=== PATIENT | male | born 1990 | race Caucasian/White ===

== ENCOUNTER → 2019-07-12 | Outpatient (CLI) | payer OTHER ==
--- NOTE | 2019-07-12 13:05 | XCELERA REPORT ---
[address] [address] Transthoracic Echocardiogram Report Name: CALVIN GOODSON Age: 29 yrs Gender: Male : 1990 Patient Status: Outpatient Patient Location: Study Date: 07/12/2019 08:11 AM Height: 67 in Weight: 185 lb BSA: 2.0 m2 Procedure: A complete two-dimensional transthoracic echocardiogram was performed (2D, M-mode, spectral and color flow Doppler). The study was technically adequate with some images being suboptimal in quality. Reason For Study: FAMILY HX OF ISCHEMIC HEART DISEASE Ordering Physician: MARYURI CATALAN Performed By: Sarah Delgado Interpretation Summary The left ventricular ejection fraction is normal. There is borderline concentric left ventricular hypertrophy. [place] not well visulised. Suspect apical hypertrophy. The left ventricle is grossly normal size. LV diastolic function could not be adequately assessed. Wall motion cannot be accurately commented on, but no definite regional wall motion abnormalities noted. There is probable mild right ventricular hypertrophy. The right ventricular systolic function is normal. The right ventricle is grossly normal size. The right atrium is normal in size The left atrial size is normal. There is no mitral valve stenosis. There is a trace amount of mitral regurgitation There is no aortic valve stenosis No aortic regurgitation is present. There is a trace or physiologic amount of tricuspid regurgitation Tricuspid regurgitation jet envelope not well defined to measure RV systolic pressure accurately. There is no tricuspid stenosis. The aortic root is not well visualized but is probably normal size. The inferior vena cava appeared normal and decreased > 50% with respiration (RAP 5-10 mmHg) There is no pericardial effusion. Consider cardiology evaluation. Consider cardiac MRI if clinically indicated. MMode/2D Measurements & Calculations RVDd: 2.2 cm LVIDd: 4.9 cm FS: 39.7 % Ao root diam: 3.0 cm IVSd: 0.99 cm LVIDs: 3.0 cm EDV(Teich): 113.5 ml Ao root area: 7.3 cm2 LVPWd: 0.97 cm ESV(Teich): 33.9 ml EF(Teich): 70.1 % Doppler Measurements & Calculations MV E max memo: MV dec slope: Ao V2 max: LV V1 max P.0 cm/sec 477.1 cm/sec2 95.1 cm/sec 3.2 mmHg MV A max memo: MV dec time: 0.19 secAo max P.6 mmHgLV V1 max: 59.3 cm/sec 89.4 cm/sec MV E/A: 1.5 PA V2 max: PI end-d memo: TR max memo: 80.3 cm/sec 49.9 cm/sec 170.9 cm/sec PA max P.6 mmHg TR max P.8 mmHg Left Ventricle The left ventricle is grossly normal size. There is borderline concentric left ventricular hypertrophy. The left ventricular ejection fraction is normal. LV diastolic function could not be adequately assessed. Wall motion cannot be accurately commented on, but no definite regional wall motion abnormalities noted. Right Ventricle The right ventricle is grossly normal size. There is mild right ventricular hypertrophy. The right ventricular systolic function is normal. Atria The right atrium is normal in size. The left atrial size is normal. Interarterial septum not well visualized and not well dopplered. Cannot comment on ASD/PFO presence. Mitral Valve The mitral valve is grossly normal. There is no mitral valve stenosis. There is a trace amount of mitral regurgitation. Aortic Valve The aortic valve is not well visualized secondary to technical limitations. There is no aortic valve stenosis. No aortic regurgitation is present. Tricuspid Valve The tricuspid valve is not well visualized, but is grossly normal. There is no tricuspid stenosis. There is a trace or physiologic amount of tricuspid regurgitation. Tricuspid regurgitation jet envelope not well defined to measure RV systolic pressure accurately. Pulmonic Valve The pulmonic valve is not well visualized. Great Vessels The aortic root is not well visualized but is probably normal size. The inferior vena cava appeared normal and decreased > 50% with respiration (RAP 5-10 mmHg). Effusions There is no pericardial effusion. : MARYURI CATALAN, Cecy
== END ==
LOC: SP 08:59
PROVIDERS: ATTEND Nurse Practitioner Acute Care
DX: Z82.49 Family history of ischemic heart disease and other diseases of the circulatory system (principal)
CPT/HCPCS: 93306